=== PATIENT | male | born 1940 | race African-American/Black ===

== ENCOUNTER 2016-11-03 16:44 | Emergency (ER) | payer MEDICARE, BC ==
[~2016-11-03] VITALS: Wt 102.0 kg
[2016-11-03] MEDS ORDERED: HYDROCODONE/APAP (5/325) TAB PO STA (17:17)
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
[2016-11-03] MEDS ORDERED: ACET325T33 PO (18:49)
[2016-11-03 19:25] VITALS: BP 173/84; PULSE 85; RESP 16
== END 2016-11-03 19:26 | disposition home or self-care (01) ==
LOC: FTE 16:44
DX: M25.552 Pain in left hip (principal); M54.30 Sciatica, unspecified side; I10 Essential (primary) hypertension; E11.9 Type 2 diabetes mellitus without complications; Z04.1 Encounter for examination and observation following transport accident
CPT/HCPCS: 72100; 73510